=== PATIENT | female | born 1990 | race Asian ===

== ENCOUNTER 2020-09-08 13:33 | Emergency (ER) | payer OTHER ==
[~2020-09-08] VITALS: Ht 149.9 cm; Wt 65.8 kg
[2020-09-08 13:42] VITALS: Ht 149.9 cm; Wt 65.8 kg
[2020-09-08 15:35] LABS: BASOPHIL % 0.4 % (0-2); PLATELET COUNT 272 x10^3mcL (130-400); RED CELL DISTRIBUTION WIDTH 12.5 % (11.5-14.5)
[2020-09-08 15:44] LABS: CALCIUM 8.8 mg/dL (8.5-10.1); CHLORIDE SERUM 107 mmol/L (98-107); CREATININE SERUM 0.6 mg/dL (0.6-1.0); GFR1 > 60 mL/min; GLUCOSE SERUM 86 mg/dL (74-106); POTASSIUM SERUM 3.4 mmol/L (3.5-5.1); SODIUM SERUM 141 mmol/L (136-145)
[2020-09-08 15:49] LABS: ALBUMIN 3.9 g/dL (3.4-5.0); ALKALINE PHOSPHATASE 56 U/L (46-116); ALT/SGPT 22 U/L (14-59); AST/SGOT 14 U/L (15-37); BILIRUBIN TOTAL 0.7 mg/dL (0.20-1.00); CHOLESTEROL 159 mg/dL (<200); CHOLESTEROL/HDL RATIO 3.2; HDL CHOLESTEROL 49 mg/dL (40-60); LIPASE 140 IU/L (73-393); TOTAL PROTEIN, SERUM 7.3 g/dL (6.4-8.2); TRIGLYCERIDES 34 mg/dL (<150)
[2020-09-08 15:53] LABS: T3 TOTAL 1.18 ng/mL
[2020-09-08 15:56] LABS: FREE T4 1.12 ng/dL (0.76-1.46); FREE THYROXINE INDEX 3.3 ug/dL (1.4-4.5)
[2020-09-08 16:49] VITALS: BP 119/56
== END 2020-09-08 16:49 | disposition home or self-care (01) ==
LOC: ED 13:33
PROVIDERS: Specialist
DX: R06.02 Shortness of breath (principal); R00.2 Palpitations; Z20.828 Contact with and (suspected) exposure to other viral communicable diseases
CPT/HCPCS: 83880; 84439; U0003